=== PATIENT | female | born 1960 | race Caucasian/White ===

== ENCOUNTER 2019-08-10 10:12 | Outpatient (CLI) | payer OTHER ==
[2019-08-11 12:46] LABS: SARS-CoV-2 MS2 Positive; SARS-CoV-2 N Gene Negative; SARS-CoV-2 S Gene Negative; SARS-CoV-2 orf1ab Negative
== END 2019-08-10 10:13 | disposition home or self-care (01) ==
LOC: SCSLAB 10:12
PROVIDERS: ATTEND Surgery
DX: K21.9 Gastro-esophageal reflux disease without esophagitis (principal); Z20.828 Contact with and (suspected) exposure to other viral communicable diseases
CPT/HCPCS: 87635; U0003

== ENCOUNTER 2019-08-12 07:58 | Outpatient (CLI) | payer OTHER ==
--- NOTE | 2019-08-12 09:24 | RAD ---
Barium swallow esophagram double contrast: 08/12/2019 HISTORY: 59-year-old female with gastroesophageal reflux K 21.9 TECHNIQUE: Upright administration of effervescent granules and thick liquid barium. Prone [place] straw administration of thin liquid barium. Intermittent fluoroscopy. FINDINGS: The entire esophagus is slightly patulous. There is a small sliding hiatal hernia. No stricture or ob vious neoplastic tumor at EG junction. Small volume of very proximal portion of stomach, but not mid and distal portions. (Stomach incompletely evaluated because this was ordered as a barium swallow rather than a upper GI series). No gastroesophageal reflux witnessed during this examination. This does not necessarily rule out reflux. IMPRESSION: 1.) Small sliding hiatal hernia 2) postsurgical changes of proximal stomach.
== END 2019-08-12 07:59 | disposition home or self-care (01) ==
LOC: RAD 07:58 → MERGE 09:00
PROVIDERS: ATTEND Surgery
DX: K21.9 Gastro-esophageal reflux disease without esophagitis (principal); K31.1 Adult hypertrophic pyloric stenosis; K44.9 Diaphragmatic hernia without obstruction or gangrene; Z98.890 Other specified postprocedural states
CPT/HCPCS: 74220

== ENCOUNTER 2024-03-15 10:56 | Outpatient (CLI) | payer OTHER ==
[2024-03-15 11:50] LABS: #Basophils Less than 0.03 10x3/uL (0.0-0.2); %Basophils 0.4 % (0.0-1.0); %Eosinophils 2.6 % (0.0-10.0); %Lymphocytes 37.7 % (21.0-51.0); %Monocytes 8.1 % (0.0-10.0); Hematocrit 41.7 % (36.0-47.0); Hemoglobin 13.7 g/dL (12.0-16.0); Mean Corpuscular HGB CONC 32.9 g/dL (32.0-36.0); Mean Corpuscular Hemoglobin 31.5 pg (27.0-31.0); Mean Corpuscular Volume 95.9 fL (78.0-98.0); Mean Platelet Volume 9.2 fL (7.4-10.4); Platelet Count 300 10x3/uL (130-400); RBC Distribution Width 11.5 % (11.5-14.5); Red Blood Cell (RBC) Count 4.35 mill/uL (4.20-5.40)
[2024-03-15 12:07] LABS: Anion Gap 11 mmol/L (10-20); BUN (Urea Nitrogen) 13 mg/dL (9.8-20.1); Calc. Creatinine Clearance 0 mL/min (70-130); Calcium 9.2 mg/dL (7.8-10.44); Carbon Dioxide 29 mmol/L (23-31); Chloride 105 mmol/L (98-107); Estimated GFR 101; Glucose 85 mg/dL (80-115); Potassium 3.7 mmol/L (3.5-5.1); Sodium 141 mmol/L (136-145)
[2024-03-15 12:09] LABS: INR-International Normal Ratio 0.9; Prothrombin Time 12.3 sec (12.0-14.7)
[2024-03-15 12:10] LABS: PTT 31.2 sec (22.9-36.1)
== END 2024-03-15 10:57 | disposition home or self-care (01) ==
LOC: LABBT 10:56
PROVIDERS: ATTEND Urology
DX: Z01.812 Encounter for preprocedural laboratory examination (principal); N20.1 Calculus of ureter
CPT/HCPCS: 80048; 85025; 85610; 85730; 87086

== ENCOUNTER 2024-10-22 13:25 | Outpatient (CLI) | payer OTHER | END 2024-10-22 13:26 | disposition home or self-care (01) | LOC: BICRAD 13:25 | PROVIDERS: ATTEND Student in an Organized Health Care Education/Training Program | DX: S99.921A Unspecified injury of right foot, initial encounter (principal); S92.354A Nondisplaced fracture of fifth metatarsal bone, right foot, initial encounter for closed fracture ==

== ENCOUNTER 2024-12-12 22:35 | Emergency (ER) | payer OTHER ==
[~2024-12-12 22:35] MED LIST: Iopamidol 370 76% 100 ML VIAL ONE
[2024-12-13] MEDS ORDERED: Ketorolac Tromethamine 30 MG (1 mL) VIAL ONE (00:30)
[2024-12-13 00:47] LABS: #Basophils Less than 0.03 10x3/uL (0.0-0.2); #Eosinophils Less than 0.03 10x3/uL (0.0-0.7); #Monocytes 0.47 10x3/uL (0.11-0.59); #Neutrophils 3.05 10x3/uL (1.40-6.50); %Basophils 0.4 % (0.0-1.0); %Eosinophils 0.2 % (0.0-10.0); %Lymphocytes 20.3 % (21.0-51.0); %Monocytes 10.5 % (0.0-10.0); %Neutrophils 68.2 % (42.0-75.0); Hematocrit 43.4 % (36.0-47.0); Hemoglobin 14.2 g/dL (12.0-16.0); Mean Corpuscular Hemoglobin 29.8 pg (27.0-31.0); Mean Corpuscular Volume 91.2 fL (78.0-98.0); Platelet Count 200 10x3/uL (130-400); Red Blood Cell (RBC) Count 4.76 mill/uL (4.20-5.40); White Blood Cell (WBC) Count 4.48 10x3/uL (4.8-10.8)
[2024-12-13 01:08] LABS: ALT (SGPT) 14 U/L (Less than 34); AST (SGOT) 35 U/L (11-34); Albumin 3.7 g/dL (3.1-4.5); Alkaline Phosphatase 89 U/L (40-110); Anion Gap 15 mmol/L (10-20); BUN (Urea Nitrogen) 9 mg/dL (9.8-20.1); Bilirubin, Total 0.5 mg/dL (0.3-1.2); Calc. Creatinine Clearance 0 mL/min (70-130); Calcium 8.9 mg/dL (7.8-10.44); Carbon Dioxide 22 mmol/L (23-31); Chloride 105 mmol/L (98-107); Globulin 3.9 g/dL (2.4-3.5); Glucose 88 mg/dL (80-115); Lipase 18 U/L (8-78); Potassium 4.0 mmol/L (3.5-5.1); Sodium 138 mmol/L (136-145)
[2024-12-13 01:24] LABS: Bacteria/HPF None Seen HPF (None Seen); CAUTI Indications for Culture Pelvic or flank pain; Glucose, Urine (Dipstick) Normal (Negative); Leukocyte 250 Leu/uL (Negative); Protein, Urine (Dipstick) 20 mg/dL (Neg-Trace); RBC/HPF 0-3 HPF (0-3); Specific Gravity, Urine 1.023 (1.002-1.036); WBC/HPF Greater than 50 HPF (0-3)
[2024-12-13 01:26] LABS: Urine Culture Reflex Yes Yes
[2024-12-13] MEDS ORDERED: cefTRIAXone (ROCEPHIN) 1 GM VIAL ONE (03:02)
== END 2024-12-13 07:00 | disposition home or self-care (01) ==
LOC: ERS 22:35
DX: N39.0 Urinary tract infection, site not specified (principal)
CPT/HCPCS: 71275; 74177; 80053; 81001; 83605; 83690; 84484; 85025; 87086; 93005; 96374; 96375; J0696; J1885; Q9967